=== PATIENT | male | born 1955 | race Caucasian/White ===

== ENCOUNTER 2018-10-10 12:15 | Emergency (ER) | payer BC ==
--- NOTE | 2018-10-10 12:31 | ER Document Report ---
ED Medical Screen (RME) - General Chief Complaint: Abdominal Pain Stated Complaint: ABDOMINAL PAIN Time Seen by Provider: 10/10/18 12:26 Notes: 62-year-old male presented to ED for complaint of abdominal cramping constipation spitting up blood and has lymph nodes that are swollen on the left groin. He states he had a temperature spike this morning but it is gone now. Has a history of hypothyroid ACL tear and repair of the ACL tear. He states he does not smoke he does occasionally drink and is on SSI. I have greeted and performed a rapid initial assessment of this patient. A comprehensive ED assessment and evaluation of the patient, analysis of test results and completion of medical decision making process will be conducted by an additional ED providers. Dictation of this chart was performed using voice recognition software; therefore, there may be some unintended grammatical errors. TRAVEL OUTSIDE OF THE [place] IN LAST 30 DAYS: No - Related Data Allergies/Adverse Reactions: Penicillins Allergy (Verified 10/10/18 12:16) Past Medical History Renal/ Medical History: Denies: Hx Peritoneal Dialysis Physical Exam - Vital signs Vitals: Temp Pulse Resp BP Pulse Ox 98.2 F 56 L 18 175/92 H 98 10/10/18 12:20 10/10/18 12:20 10/10/18 12:20 10/10/18 12:20 10/10/18 12:20 Course - Vital Signs Vital signs: Temp Pulse Resp BP Pulse Ox 98.2 F 56 L 18 175/92 H 98 10/10/18 12:20 10/10/18 12:20 10/10/18 12:20 10/10/18 12:20 10/10/18 12:20
[2018-10-10] MEDS ORDERED: ONDANSETRON 4 MG TAB.RAPDIS PO ONE (12:32)
[2018-10-10 13:05] LABS: ABSOLUTE BASOPHILS # (AUTO) 0.1 10^3/uL (0.0-0.2); ABSOLUTE EOSINOPHILS # (AUTO) 0.2 10^3/uL (0.0-0.6); ABSOLUTE LYMPHOCYTES (AUTO) 2.5 10^3/uL (0.5-4.7); ABSOLUTE MONOCYTES (AUTO) 0.5 10^3/uL (0.1-1.4); ABSOLUTE NEUT (AUTO) 5.2 10^3/uL (1.7-8.2); BASOPHILS % (AUTO) 0.9 % (0-2); EOSINOPHILS % (AUTO) 2.6 % (0-6); HEMATOCRIT 46.9 % (37.9-51.0); HEMOGLOBIN 16.4 g/dL (13.5-17.0); LYMPHOCYTES % (AUTO) 29.7 % (13-45); MEAN CORPUSCULAR HEMOGLOBIN 32.4 pg (27.0-33.4); MEAN CORPUSCULAR VOLUME 93 fl (80-97); MONOCYTES % (AUTO) 6.2 % (3-13); PLATELET COUNT 246 10^3/uL (150-450); RED BLOOD COUNT 5.06 10^6/uL (4.35-5.55); SEGMENTED NEUTROPHILS % (AUTO) 60.6 % (42-78); TOTAL CELLS COUNTED % (AUTO) 100 %; WHITE BLOOD COUNT 8.5 10^3/uL (4.0-10.5)
[2018-10-10 13:19] LABS: ALANINE AMINOTRANSFERASE 39 U/L (21-72); ALBUMIN 4.9 g/dL (3.5-5.0); ALKALINE PHOSPHATASE 69 U/L (38-126); ANION GAP 13 (5-19); ASPARTATE AMINO TRANSFERASE 31 U/L (17-59); BILIRUBIN,DIRECT 0.3 mg/dL (0.0-0.4); BILIRUBIN,TOTAL 0.8 mg/dL (0.2-1.3); BLOOD UREA NITROGEN 19 mg/dL (7-20); CALCIUM 10.6 mg/dL (8.4-10.2); CARBON DIOXIDE 25 mmol/L (22-30); CHLORIDE 108 mmol/L (98-107); GLUCOSE 119 mg/dL (75-110); POTASSIUM 4.1 mmol/L (3.6-5.0); SODIUM 145.8 mmol/L (137-145); TOTAL PROTEIN 7.7 g/dL (6.3-8.2)
--- NOTE | 2018-10-10 13:49 | RADIOLOGY REPORT (SQ) ---
EXAM DESCRIPTION: ACUTE ABDOMEN SERIES COMPLETED DATE/TIME: 10/10/2018 1:38 pm REASON FOR STUDY: constipation Nausea vomitng lymphadenopathy COMPARISON: None. NUMBER OF VIEWS: Three views. TECHNIQUE: Frontal chest, supine abdomen and upright abdomen radiographic images acquired. LIMITATIONS: None. FINDINGS: CHEST: Normal heart and pulmonary vasculature. No acute infiltrates. Bony structures int act. FREE AIR: None. No abnormal gas collections. BOWEL GAS PATTERN: Nonspecific bowel-gas pattern. CALCIFICATIONS: No suspicious calcifications. HARDWARE: None in the abdomen. SOFT TISSUES: No gross mass or suggestion of organomegaly. BONES: Lumbar spondylosis with scoliosis convex right. OTHER: No other significant finding. IMPRESSION: Nonspecific bowel-gas pattern. No acute disease. TECHNICAL DOCUMENTATION: JOB ID: [id number] [employer]- All Rights Reserved Reading location - IP/workstation name: [email or web address]
[2018-10-10 14:21] LABS: APPEARANCE,URINE SLIGHTLY-CLOUDY; BILIRUBIN,URINE NEGATIVE (NEGATIVE); COLOR,URINE AMBER; GLUCOSE, URINE NEGATIVE (NEGATIVE); KETONES,URINE NEGATIVE (NEGATIVE); LEUKOCYTE ESTERASE,URINE NEGATIVE (NEGATIVE); NITRITE,URINE NEGATIVE (NEGATIVE); PROTEIN,URINE NEGATIVE (NEGATIVE); URINE SPECIFIC GRAVITY 1.023; UROBILINOGEN,URINE NEGATIVE mg/dL (<2.0)
[2018-10-10] MEDS ORDERED: SUCRALFATE 1 GM TABLET PO ONE (14:52)
[2018-10-10] MEDS ORDERED: FAMOTIDINE 20 MG TABLET PO ONE (14:52)
--- NOTE | 2018-10-10 15:09 | ER Document Report ---
ED General - General Chief Complaint: Abdominal Pain Stated Complaint: ABDOMINAL PAIN Time Seen by Provider: 10/10/18 12:26 Notes: Patient is a 62-year-old male presents to the emergency department for generalized left abdominal pain for last 2 days. Patient is denying any fever but is admitting to one episode of vomiting prior to arrival to the emergency room. Patient's vomit he states was "streaked with red stuff." He is denying any vomiting of jaimee red blood. Patient states his last bowel movement was 2 days ago until he had a bowel movement today in the emergency room. Upon my examination patient states abdominal pain is better after bowel movement. Patient is denying any blood or melena in his stool. Past medical history: Hypothyroidism Medications: Levothyroxine Allergies: Penicillin Surgical history: None TRAVEL OUTSIDE OF THE [place] IN LAST 30 DAYS: No - Related Data Allergies/Adverse Reactions: Penicillins Allergy (Verified 10/10/18 12:16) Past Medical History - General Information source: Patient - Social History Smoking Status: Never Smoker Family History: Reviewed & Not Pertinent Patient has suicidal ideation: No Patient has homicidal ideation: No Renal/ Medical History: Denies: Hx Peritoneal Dialysis Review of Systems - Review of Systems Constitutional: denies: Fever EENT: No symptoms reported Cardiovascular: No symptoms reported Respiratory: No symptoms reported Gastrointestinal: See HPI Genitourinary: No symptoms reported Male Genitourinary: No symptoms reported Musculoskeletal: No symptoms reported Skin: No symptoms reported Hematologic/Lymphatic: No symptoms reported Neurological/Psychological: No symptoms reported Physical Exam - Vital signs Vitals: Temp Pulse Resp BP Pulse Ox 98.2 F 56 L 18 175/92 H 98 10/10/18 12:20 10/10/18 12:20 10/10/18 12:20 10/10/18 12:20 10/10/18 12:20 - Notes Notes: GENERAL: Alert, interacts well. No acute distress. HEAD: Normocephalic, atraumatic. EYES: Pupils equal, round, and reactive to light. Extraocular movements intact. ENT: Oral mucosa moist, tongue midline. NECK: Full range of motion. Supple. Trachea midline. LUNGS: Clear to auscultation bilaterally, no wheezes, rales, or rhonchi. No respiratory distress. HEART: Regular rate and rhythm. No murmur ABDOMEN: Soft, slight tenderness left upper quadrant. Non-distended. Bowel sounds present in all 4 quadrants. No McBurney's point tenderness, no Johnson sign noted. EXTREMITIES: Moves all 4 extremities spontaneously. No edema, normal radial and dorsalis pedis pulses bilaterally. No cyanosis. BACK: no cervical, thoracic, lumbar midline tenderness. No saddle anesthesia, normal distal neurovascular exam. NEUROLOGICAL: Alert and oriented x3. Normal speech. cranial nerves II through XII grossly intact PSYCH: Normal affect, normal mood. SKIN: Warm, dry, normal turgor. No rashes or lesions noted. 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, circumcised penis no active discharge at the meatus, testicles descended nonerythematous, non-tender bilaterally Course - Re-evaluation Re-evalutation: 10/10/18 15:22 Laboratory 10/10/18 10/10/18 10/10/18 12:38 12:38 13:43 WBC 8.5 RBC 5.06 Hgb 16.4 Hct 46.9 MCV 93 MCH 32.4 MCHC 35.0 RDW 13.0 Plt Count 246 Seg Neutrophils % 60.6 Lymphocytes % 29.7 Monocytes % 6.2 Eosinophils % 2.6 Basophils % 0.9 Absolute Neutrophils 5.2 Absolute Lymphocytes 2.5 Absolute Monocytes 0.5 Absolute Eosinophils 0.2 Absolute Basophils 0.1 Sodium 145.8 H Potassium 4.1 Chloride 108 H Carbon Dioxide 25 Anion Gap 13 BUN 19 Creatinine 1.01 Est GFR ( Amer) > 60 Est GFR (Non-Af Amer) > 60 Glucose 119 H Calcium 10.6 H Total Bilirubin 0.8 Direct Bilirubin 0.3 Neonat Total Bilirubin Not Reportable Neonat Direct Bilirubin Not Reportable Neonat Indirect Bili Not Reportable AST 31 ALT 39 Alkaline Phosphatase 69 Total Protein 7.7 Albumin 4.9 Urine Color ANJEL Urine Appearance SLIGHTLY-CLOUDY Urine pH 5.0 Ur Specific Fithian 1.023 Urine Protein NEGATIVE Urine Glucose (UA) NEGATIVE Urine Ketones NEGATIVE Urine Blood NEGATIVE Urine Nitrite NEGATIVE Urine Bilirubin NEGATIVE Urine Urobilinogen NEGATIVE Ur Leukocyte Esterase NEGATIVE Urine WBC (Auto) 3 Urine RBC (Auto) 1 U Hyaline Cast (Auto) 1 Squamous Epi Cells Auto <1 Urine Mucus (Auto) MANY Urine Ascorbic Acid NEGATIVE Acute Abdomen Series 10/10/18 12:29 IMPRESSION: Nonspecific bowel-gas pattern. No acute disease. Patient's labs show no signs of leukocytosis, no signs of anemia noted. Due to patient feeling better after a bowel movement in the emergency department with continued denial of right or left lower abdominal pain I do not feel that CT imaging is warranted at this time. Patient has minor tenderness in his left upper quadrant. Discussed use of Pepcid and Carafate for potential GERD. Patient states he now remembers having history of indigestion but does not take any medication for it. Patient's denying any nausea at this time. Has been able to eat and drink since episode of vomiting prior to arrival to the emergency room. Patient is hemodynamically stable, discussed following up with primary care provider and potentially gastroenterology. Close return precautions discussed. Patient stable for discharge. - Vital Signs Vital signs: Temp Pulse Resp BP Pulse Ox 98.2 F 56 L 18 175/92 H 98 10/10/18 12:20 10/10/18 12:20 10/10/18 12:20 10/10/18 12:20 10/10/18 12:20 - Laboratory Result Diagrams: 10/10/18 12:38 10/10/18 12:38 Laboratory results interpreted by me: 10/10/18 12:38 Sodium 145.8 H Chloride 108 H Glucose 119 H Calcium 10.6 H Discharge - Discharge Clinical Impression: Vomiting Qualifiers: Vomiting type: hematemesis Nausea presence: unspecified Qualified Code(s): K92.0 - Hematemesis Abdominal pain Qualifiers: Abdominal location: left upper quadrant Qualified Code(s): R10.12 - Left upper quadrant pain Gastritis Qualifiers: Gastritis type: unspecified gastritis Chronicity: acute Gastritis bleeding: with bleeding Qualified Code(s): K29.01 - Acute gastritis with bleeding Constipation Qualifiers: Constipation type: other constipation type Qualified Code(s): K59.09 - Other constipation Condition: Stable Disposition: HOME, SELF-CARE Instructions: Abdominal Pain ([facility]), Vomiting ([facility]), Gastritis ([facility]), Constipation ([facility]) Additional Instructions: As we discussed you have been seen and treated in the emergency department for your generalized abdominal pain. Due to the fact you feel better after having a bowel movement you very well could have been constipated. I am going to give you Carafate and Pepcid for your generalized indigestion. Please make sure he follow-up with your primary care provider and gastroenterology which will be provided in this packet. Please also immediately return to the emergency room should he get lightheaded, dizzy, Vomiting any bright red blood or have any other concerns. Prescriptions: Famotidine [Pepcid 40 mg Tablet] 40 mg PO BID #60 tablet Sucralfate [Carafate 1 gm Tablet] 1 gm PO QID #20 tablet
[2018-10-10 15:38] VITALS: BP 154/82
== END 2018-10-10 15:37 | disposition home or self-care (01) ==
LOC: ER 12:15
DX: K92.0 Hematemesis (principal); R10.12 Left upper quadrant pain; K29.01 Acute gastritis with bleeding; K59.09 Other constipation; R10.84 Generalized abdominal pain
CPT/HCPCS: 36415; 74022; 80053; 81001; 85025; 87040; 99284

== ENCOUNTER 2018-10-10 22:44 | Emergency (ER) | payer BC ==
--- NOTE | 2018-10-10 23:58 | ER Document Report ---
ED Medical Screen (RME) - General Chief Complaint: Rectal Bleeding Stated Complaint: BLOOD IN STOOL Time Seen by Provider: 10/10/18 23:55 Notes: 62-year-old male, who was seen here earlier today for left upper quadrant pain and vomiting with some blood, states that he was told return if he had blood in his stool. He admits to very dark/black looking stool with some mixed in maroon. He still has some left upper quadrant pain. He states he was hoping for recheck in a referral. He states he has had negative colonoscopies in the past, never had peptic ulcers in the past, is not on a blood thinner. TRAVEL OUTSIDE OF THE [place] IN LAST 30 DAYS: No - Related Data Allergies/Adverse Reactions: Penicillins Allergy (Verified 10/10/18 12:16) Past Medical History Renal/ Medical History: Denies: Hx Peritoneal Dialysis Physical Exam - Vital signs Vitals: Temp Pulse Resp BP 98.9 F 71 18 186/76 H 10/10/18 23:04 10/10/18 23:04 10/10/18 23:04 10/10/18 23:04 - Abdominal Tenderness: Tender - Some active quadrant tenderness, unremarkable abdomen otherwise Course - Re-evaluation Re-evalutation: Initially patient just asking for referral, then he consents to laboratory evaluation especially for hemoglobin trending. I have greeted and performed a rapid initial assessment of this patient. A comprehensive ED assessment and evaluation of the patient, analysis of test results and completion of the medical decision making process will be conducted by additional ED providers. - Vital Signs Vital signs: Temp Pulse Resp BP Pulse Ox 98.9 F 71 18 186/76 H 10/10/18 23:04 10/10/18 23:04 10/10/18 23:04 10/10/18 23:04
[2018-10-11 00:18] LABS: ABSOLUTE EOSINOPHILS # (AUTO) 0.1 10^3/uL (0.0-0.6); ABSOLUTE LYMPHOCYTES (AUTO) 1.6 10^3/uL (0.5-4.7); ABSOLUTE MONOCYTES (AUTO) 0.7 10^3/uL (0.1-1.4); ABSOLUTE NEUT (AUTO) 8.5 10^3/uL (1.7-8.2); BASOPHILS % (AUTO) 0.4 % (0-2); EOSINOPHILS % (AUTO) 0.5 % (0-6); HEMATOCRIT 45.6 % (37.9-51.0); HEMOGLOBIN 15.6 g/dL (13.5-17.0); LYMPHOCYTES % (AUTO) 14.9 % (13-45); MEAN CORPUSCULAR HEMOGLOBIN 31.7 pg (27.0-33.4); MEAN CORPUSCULAR HGB CONC 34.2 g/dL (32.0-36.0); MEAN CORPUSCULAR VOLUME 93 fl (80-97); MONOCYTES % (AUTO) 6.5 % (3-13); PLATELET COUNT 255 10^3/uL (150-450); RED BLOOD COUNT 4.92 10^6/uL (4.35-5.55); SEGMENTED NEUTROPHILS % (AUTO) 77.7 % (42-78); TOTAL CELLS COUNTED % (AUTO) 100 %; WHITE BLOOD COUNT 10.9 10^3/uL (4.0-10.5)
[2018-10-11 00:21] LABS: INTERNATIONAL RATION (INR) 0.98; PROTHROMBIN TIME 13.5 SEC (11.4-15.4)
[2018-10-11 00:22] LABS: PARTIAL THROMBOPLASTIN TIME 32.4 SEC (23.5-35.8)
[2018-10-11 00:33] LABS: ALANINE AMINOTRANSFERASE 37 U/L (21-72); ALBUMIN 4.9 g/dL (3.5-5.0); ALKALINE PHOSPHATASE 68 U/L (38-126); ANION GAP 12 (5-19); ASPARTATE AMINO TRANSFERASE 29 U/L (17-59); BILIRUBIN,DIRECT 0.3 mg/dL (0.0-0.4); BILIRUBIN,TOTAL 0.8 mg/dL (0.2-1.3); BLOOD UREA NITROGEN 17 mg/dL (7-20); CALCIUM 9.9 mg/dL (8.4-10.2); CARBON DIOXIDE 26 mmol/L (22-30); CHLORIDE 106 mmol/L (98-107); GLUCOSE 116 mg/dL (75-110); POTASSIUM 4.5 mmol/L (3.6-5.0); SODIUM 143.6 mmol/L (137-145); TOTAL PROTEIN 7.7 g/dL (6.3-8.2)
--- NOTE | 2018-10-11 01:25 | ER Document Report ---
ED General - General Chief Complaint: Rectal Bleeding Stated Complaint: BLOOD IN STOOL Time Seen by Provider: 10/10/18 23:55 Notes: Patient is a 62-year-old male with a past medical history of essential hypertension who presents after having dark stool. Patient was seen in the emergency department earlier today, had had a small amount of blood and an episode of emesis. States that he came back to the emergency department because the return instructions stated that he had any black or red stool. Has not had any repeat bowel movement since that time he has not had any further vomiting. Continues to note some very mild, left upper quadrant abdominal discomfort. This is a cramping, aching, constant discomfort. Worsened by eating. Not improved by anything. Denies fever or constitutional symptoms. Denies lightheadedness or syncope. TRAVEL OUTSIDE OF THE [place] IN LAST 30 DAYS: No - Related Data Allergies/Adverse Reactions: Penicillins Allergy (Verified 10/10/18 12:16) Past Medical History - General Information source: Patient - Social History Smoking Status: Never Smoker Frequency of alcohol use: None Drug Abuse: None Family History: Reviewed & Not Pertinent Renal/ Medical History: Denies: Hx Peritoneal Dialysis Review of Systems - Review of Systems Notes: Constitutional: Negative for fever. HENT: Negative for sore throat. Eyes: Negative for visual changes. Cardiovascular: Negative for chest pain. Respiratory: Negative for shortness of breath. Gastrointestinal: Positive for abdominal cramping, hematochezia Genitourinary: Negative for dysuria. Musculoskeletal: Negative for back pain. Skin: Negative for rash. Neurological: Negative for headaches, weakness or numbness. 10 point ROS negative except as marked above and in HPI. Physical Exam - Vital signs Vitals: Temp Pulse Resp BP 98.9 F 71 18 186/76 H 10/10/18 23:04 10/10/18 23:04 10/10/18 23:04 10/10/18 23:04 Interpretation: Hypertensive Notes: PHYSICAL EXAMINATION: GENERAL: Well-appearing, well-nourished and in no acute distress. HEAD: Atraumatic, normocephalic. EYES: Pupils equal round and reactive to light, extraocular movements intact, sclera anicteric, conjunctiva are normal. ENT: nares patent, oropharynx clear without exudates. Moist mucous membranes. NECK: Normal range of motion, supple without lymphadenopathy LUNGS: Breath sounds clear to auscultation bilaterally and equal. No wheezes rales or rhonchi. HEART: Regular rate and rhythm without murmurs ABDOMEN: Soft, nontender, normoactive bowel sounds. No guarding, no rebound. No masses appreciated. Rectal: Brown stool, no gross blood. Guaiac negative at bedside. EXTREMITIES: Normal range of motion, no pitting or edema. No cyanosis. NEUROLOGICAL: No focal neurological deficits. Moves all extremities spontaneously and on command. PSYCH: Normal mood, normal affect. SKIN: Warm, Dry, normal turgor, no rashes or lesions noted. Course - Re-evaluation Re-evalutation: 10/11/18 01:22 Patient presents with passing a small amount of hematochezia after being seen earlier today for having vomiting with a small amount of bright red blood. Patient states that there was a hematochezia with possible maroon mixture in the stool. Patient's hemoglobin effectively unchanged from his CBC earlier today. Rectal exam without any evidence of melena, hematochezia, maroon-colored stool. Guaiac negative the bedside. His abdominal exam is completely benign without any areas of focal tenderness, rebound or guarding. Vitals are within normal limit without tachycardia or hypotension. I do not believe the patient requires emergent endoscopy or colonoscopy at this time. Patient has been informed that he needs to continue taking the medications that were prescribed on his previous visit and follow-up with his primary care physician for referral to GI. At this time will discharge with return precautions and follow-up recommendations. Verbal discharge instructions given a the bedside and opportunity for questions given. Medication warnings reviewed. Patient is in agreement with this plan and has verbalized understanding of return precautions and the need for primary care follow-up in the next 24-72 hours. - Vital Signs Vital signs: Temp Pulse Resp BP Pulse Ox 98.8 F 66 14 159/87 H 98 10/11/18 02:04 10/11/18 02:04 10/11/18 02:04 10/11/18 02:04 10/11/18 02:04 - Laboratory Result Diagrams: 10/10/18 23:59 10/10/18 23:59 Laboratory results interpreted by me: 10/10/18 10/10/18 23:59 23:59 WBC 10.9 H Absolute Neutrophils 8.5 H Glucose 116 H Discharge - Discharge Clinical Impression: Upper abdominal pain, Hematochezia Condition: Good Disposition: HOME, SELF-CARE Additional Instructions: Your blood counts are effectively unchanged from your previous visit. Please return for recurrent episodes of bright red blood, passing out, becoming severely lightheaded, or having any other symptoms that are worrisome to you.
[2018-10-11 03:03] VITALS: BP 159/87
== END 2018-10-11 02:04 | disposition home or self-care (01) ==
LOC: ER 22:44
DX: K92.1 Melena (principal); R10.12 Left upper quadrant pain; I10 Essential (primary) hypertension
CPT/HCPCS: 36415; 80053; 85610; 85730; 86850; 86900; 86901; 99283